=== PATIENT | female | born 1995 | race Caucasian/White ===

== ENCOUNTER → 2024-08-16 07:56 | Outpatient (REF) | payer BC, SELFPAY | LOC: HWRAD 07:56 | PROVIDERS: ATTENDING PHYSICIAN Urology; FAMILY PHYSICIAN Family Medicine | DX: G83.4 Cauda equina syndrome (principal); N31.9 Neuromuscular dysfunction of bladder, unspecified | CPT/HCPCS: 76770 ==

== ENCOUNTER → 2024-09-05 07:24 | Outpatient (REF) | payer BC, SELFPAY ==
[2024-09-05 09:32] LABS: % Basophils 0.9 % (0-2); % Eosinophils 8.2 % (0-6); % Immature Granulocytes 0.5 % (0-0.5); % Lymphocytes 22.3 % (20.5-51.1); % Monocytes 7.1 % (1.7-9.3); Absolute Basophils 0.1 10^3/uL (0-0.2); Absolute Eosinophils 0.6 10^3/uL (0-0.7); Absolute Lymphocytes 1.7 10^3/uL (1.2-3.4); Absolute Monocytes 0.6 10^3/uL (0.1-0.6); Absolute Neutrophils 4.7 10^3/uL (1.4-6.5); Hematocrit 40.1 % (37.0-47.0); Hemoglobin 13.6 g/dL (12.0-16.0); Mean Corp Hgb Conc. 33.9 g/dL (33.0-37.0); Mean Corpuscular Hgb 29.4 pg (27.0-31.0); Mean Corpuscular Volume 86.8 fL (81.0-99.0); Mean Platelet Volume 9.9 fL (7.4-10.4); Nucleated Red Blood Cells % 0 %; Platelet Count 275 10^3/uL (130-400); Red Blood Cell Count 4.62 10^6/uL (4.20-5.40); Red Cell Dist. Width 12.8 % (11.5-14.5); White Blood Cell Count 7.8 10^3/uL (4.8-10.8)
[2024-09-05 10:19] LABS: TSH Reflex To Free T4 1.82 uIU/ml (0.47-4.68)
[2024-09-05 10:56] LABS: Folate 3.7 ng/ml (2.76-20); Vitamin B12 423 pg/ml (239-931)
[2024-09-05 10:59] LABS: ALT (SGPT) 33 U/L (0-35); AST (SGOT) 24 U/L (14-36); Albumin 3.8 g/dl (3.5-5.0); Alkaline Phosphatase 95 U/L (38-126); Blood Urea Nitrogen 9 mg/dl (7-17); Calcium 9.3 mg/dl (8.4-10.2); Carbon Dioxide 22 mmol/L (22-30); Chloride 105 mmol/L (98-107); Glucose 302 mg/dl (70-99); HDL Cholesterol 33 mg/dl; LDL Cholesterol, Calculated 98 mg/dl; Sodium 137 mmol/L (135-145); Total Bilirubin 0.7 mg/dl (0.2-1.3); Total Cholesterol 168 mg/dl (50-199); Total Protein 6.9 g/dl (6.3-8.2); Triglyceride 188 mg/dl (10-149); Very Low Density Lipoprotein 37 mg/dl (0-30); eGFR > 60.00
[2024-09-05 11:08] LABS: Total Iron Binding Capacity 331 ug/dl (265-497)
[2024-09-05 11:43] LABS: Glycohemoglobin (HgbA1c) 10.5 % (4.0-5.6)
[2024-09-07 01:47] LABS: Vitamin D 1,25 Dihydroxy 64.8 pg/mL (19.9-79.3)
== END ==
LOC: HWLAB 07:24
PROVIDERS: ATTENDING PHYSICIAN Nurse Practitioner Family
DX: Z00.00 Encounter for general adult medical examination without abnormal findings (principal)
CPT/HCPCS: 36415; 80053; 80061; 82607; 82652; 82728; 82746; 83036; 83550; 84443; 85025

== ENCOUNTER → 2024-12-21 07:04 | Outpatient (REF) | payer BC, SELFPAY ==
[2024-12-21 09:30] LABS: Hematocrit 39.7 % (37.0-47.0); Hemoglobin 13.5 g/dL (12.0-16.0); Mean Corp Hgb Conc. 34.0 g/dL (33.0-37.0); Mean Corpuscular Volume 89.0 fL (81.0-99.0); Nucleated Red Blood Cells % 0 %; Platelet Count 278 10^3/uL (130-400); Red Cell Dist. Width 12.8 % (11.5-14.5)
[2024-12-21 10:25] LABS: Microalb - Urine Creatinine 115.000 mg/dl
[2024-12-21 10:28] LABS: ALT (SGPT) 26 U/L (0-35); AST (SGOT) 25 U/L (14-36); Albumin 3.9 g/dl (3.5-5.0); Alkaline Phosphatase 73 U/L (38-126); Blood Urea Nitrogen 13 mg/dl (7-17); Calcium 9.2 mg/dl (8.4-10.2); Carbon Dioxide 23 mmol/L (22-30); Chloride 107 mmol/L (98-107); Glucose 131 mg/dl (70-99); HDL Cholesterol 30 mg/dl; LDL Cholesterol, Calculated 104 mg/dl; Potassium 4.4 mmol/L (3.5-5.1); Sodium 137 mmol/L (135-145); Total Protein 7.3 g/dl (6.3-8.2); Uric Acid 8.3 mg/dl (2.5-6.2); Very Low Density Lipoprotein 23 mg/dl (0-30); eGFR > 60.00
[2024-12-21 10:28] LABS: Microalbumin, Random Urine 0.7 mg/dl (0.6-1.7)
[2024-12-21 10:40] LABS: C-Reactive Protein 39.90 mg/L (0.0-10.00)
[2024-12-21 11:13] LABS: TSH 1.29 uIU/ml (0.47-4.68)
[2024-12-21 11:17] LABS: Ferritin 170.0 ng/ml (6.24-137)
[2024-12-21 11:48] LABS: Glycohemoglobin (HgbA1c) 6.1 % (4.0-5.6)
== END ==
LOC: HWLAB 07:04
PROVIDERS: ATTENDING PHYSICIAN Nurse Practitioner Family; FAMILY PHYSICIAN Family Medicine
DX: R79.89 Other specified abnormal findings of blood chemistry (principal); E78.49 Other hyperlipidemia; E11.65 Type 2 diabetes mellitus with hyperglycemia; K76.0 Fatty (change of) liver, not elsewhere classified; R53.83 Other fatigue; E78.2 Mixed hyperlipidemia; I10 Essential (primary) hypertension; G47.30 Sleep apnea, unspecified
CPT/HCPCS: 36415; 80053; 80061; 82043; 82570; 82728; 83036; 84439; 84443; 84550; 85025; 86140